=== PATIENT | female | born 1985 | race Caucasian/White ===

== ENCOUNTER 2020-09-21 04:05 | Emergency (ER) | payer BC, OTHER ==
[~2020-09-21] VITALS: Ht 175.3 cm; Wt 220.0 kg
[2020-09-21 05:57] VITALS: BP 125/86
--- NOTE | 2020-09-21 05:57 | NUR ---
covid negative. pt to be dc'd .
== END 2020-09-21 06:07 | disposition home or self-care (01) ==
LOC: ER 04:06
DX: J06.9 Acute upper respiratory infection, unspecified (principal); Z20.828 Contact with and (suspected) exposure to other viral communicable diseases
CPT/HCPCS: 71046; 87635; 93005; 99285; C9803

== ENCOUNTER 2021-04-05 23:05 | Emergency (ER) | payer OTHER ==
[~2021-04-05] VITALS: Ht 172.7 cm; Wt 68.0 kg
[2021-04-05 23:10] VITALS: BP 118/74
== END 2021-04-06 04:37 | disposition home or self-care (01) ==
LOC: ER 23:05
DX: S61.032A Puncture wound without foreign body of left thumb without damage to nail, initial encounter (principal); Z88.5 Allergy status to narcotic agent; X58.XXXA Exposure to other specified factors, initial encounter; Y93.89 Activity, other specified; Y92.89 Other specified places as the place of occurrence of the external cause; Y99.8 Other external cause status
CPT/HCPCS: 99281

== ENCOUNTER 2021-10-12 11:24 | Outpatient (CLI) | payer OTHER | END 2021-10-12 23:59 | disposition home or self-care (01) | LOC: LAB 11:24 | PROVIDERS: ATTEND Internal Medicine Infectious Disease | DX: Z20.822 Contact with and (suspected) exposure to COVID-19 (principal) | CPT/HCPCS: 87635; C9803 ==